=== PATIENT | female | born 1955 | race Caucasian/White ===

== ENCOUNTER → 2017-06-26 | Outpatient (CLI) | payer MEDICARE, BC ==
--- NOTE | 2017-07-01 14:20 | PCVCIMAG ---
APPROVED REPORT Study performed: 06/26/2017 11:01:09 EXAM: Comprehensive 2D, Doppler, and color-flow Echocardiogram Patient Location: Echo lab Status: routine BSA: 1.99 HR: 95 bpmBP: 136/82 mmHg Rhythm: NSR Other Information Study Quality: Good Risk Factors: Cardiac Risk Factors: Hyperlipidemia Indications Dyspnea Chest Pain 2D Dimensions LVEF(%): 64.72 (>50%) IVSd: 10.23 (7-11mm)LVOT Diam: 17.49 (18-24mm) LVDd: 40.57 mm PWd: 10.06 (7-11mm)Ascending Ao: 34.32 (22-36mm) LVDs: 26.39 (25-40mm) Left Atrium: 31.72 (27-40mm) Aortic Root: 26.30 mm LV Single Plane 4CH: 63.55 % LV Single Plane 2CH: 65.66 %Peña's LVEF: 64.61 % Biplane EF: 68.2 % Volumes Left Atrial Volume (Systole) Single Plane 4CH: 44.56 mLSingle Plane 2CH: 27.77 mL LA ESV Index: 18.00 mL/m2 Aortic Valve AoV Peak Gerard.: 1.33 m/s AO Peak Gr.: 7.25 mmHgLVOT Max P.83 mmHg LVOT Max V: 0.94 m/s LINDSAY Vmax: 1.70 cm2 Mitral Valve E/A Ratio: 0.8 MV Decel. Time: 150.82 ms MV E Max Gerard.: 0.77 m/s MV A Gerard.: 0.94 m/s IVRT: 46.14 ms TDI E/Lateral E': 8.56E/Medial E': 15.40 Medial E' Gerard.: 0.05 m/s Lateral E' Gerard.: 0.09 m/s Pulmonary Valve PV Peak Gerard.: 1.11 m/sPV Peak Gr.: 4.90 mmHg Pulmonary Vein P Vein S: 0.59 m/sP Vein A: 0.38 m/s P Vein D: 0.60 m/sP Vein A Dur.: 69.2 msec P Vein S/D Ratio: 0.98 Tricuspid Valve RAP Estimate: 5.00 mmHg Left Ventricle The left ventricle is normal size. There is normal LV segmental wall motion. There is normal left ventricular wall thickness. Left ventricular systolic function is normal. The left ventricular ejection fraction is within the normal range. LVEF is 60-65%. Grade I - abnormal relaxation pattern. Right Ventricle The right ventricle is normal size. The right ventricular systolic function is normal. Atria The left atrium size is normal. The right atrium size is normal. Aortic Valve The aortic valve is normal in structure. No aortic regurgitation is present. There is no aortic valvular stenosis. Mitral Valve The mitral valve is normal in structure. Trace mitral regurgitation. No evidence of mitral valve stenosis. Tricuspid Valve The tricuspid valve is normal in structure. There is no tricuspid valve regurgitation noted. Pulmonic Valve The pulmonary valve is normal in structure. There is no pulmonic valvular regurgitation. Great Vessels The aortic root is normal in size. IVC is normal in size and collapses with >50% inspiration Pericardium There is no pericardial effusion. <Conclusion> The left ventricle is normal size. LVEF is 60-65%. The aortic valve is normal in structure. The mitral valve is normal in structure. Trace mitral regurgitation. The pulmonary valve is normal in structure. The aortic root is normal in size.
== END | disposition home or self-care (01) ==
LOC: PCVCIMAG 06-05 10:07
PROVIDERS: ATTEND Internal Medicine
DX: I34.0 Nonrheumatic mitral (valve) insufficiency (principal); I10 Essential (primary) hypertension; E78.5 Hyperlipidemia, unspecified
CPT/HCPCS: 93306